=== PATIENT | female | born 1990 | race Hispanic/Latino ===

== ENCOUNTER 2017-03-15 01:09 | Emergency (ER) | payer SELFPAY ==
[2017-03-15 01:24] VITALS: BMI 21.5
[2017-03-15 01:28] VITALS: TEMP 97.8; O2SAT 99
--- NOTE | 2017-03-15 01:33 | ED PDOC ---
HPI: Psych/Substance Abuse Time Seen by Provider: 03/15/17 01:14 Chief Complaint (Nursing): Alcohol Ingestion Chief Complaint (Provider): Alcohol Ingestion History Per: EMS History/Exam Limitations: no limitations Onset/Duration Of Symptoms: Hrs Additional Complaint(s): Christi Garza presents to the ED accompanied by EMS for alcohol intoxication. EMS Report they found patient lying on a bench on the streets in [place]. Denies any trauma, medical problems or complaints. Unable to obtain history of patient due to nature of intoxication. Past Medical History Reviewed: Historical Data, Nursing Documentation, Vital Signs Vital Signs: Last Vital Signs Temp 97.8 F 03/15/17 01:21 Pulse 109 H 03/15/17 01:21 Resp 18 03/15/17 01:21 BP 149/69 03/15/17 01:21 Pulse Ox 99 03/15/17 01:21 - Medical History PMH: No Chronic Diseases - Surgical History Surgical History: No Surg Hx - Family History Family History: States: Unknown Family Hx - Allergies Allergies/Adverse Reactions: Allergies Allergy/AdvReac Type Severity Reaction Status Date / Time No Known Allergies Allergy Verified 03/15/17 01:21 Review of Systems ROS Statement: Except As Marked, All Systems Reviewed And Found Negative Constitutional: Positive for: Other (Alcohol Intoxication.) Physical Exam - Reviewed Nursing Documentation Reviewed: Yes Vital Signs Reviewed: Yes - Physical Exam Appears: Positive for: Well, Non-toxic, No Acute Distress Head Exam: Positive for: ATRAUMATIC, NORMAL INSPECTION, NORMOCEPHALIC Skin: Positive for: Normal Color Eye Exam: Positive for: Normal appearance, EOMI Cardiovascular/Chest: Positive for: Regular Rate, Rhythm. Negative for: Murmur , Tachycardia Respiratory: Positive for: Normal Breath Sounds. Negative for: Wheezing, Respiratory Distress Gastrointestinal/Abdominal: Positive for: Soft. Negative for: Tenderness Extremity: Positive for: Normal ROM Neurologic/Psych: Positive for: Alert, Oriented, Gait (Unsteady Gait.), Other ( Slurred speech.) - ECG O2 Sat by Pulse Oximetry: 99 (RA) Pulse Ox Interpretation: Normal Medical Decision Making Medical Decision Makin: Initial Plan * Alcohol Serum Stat * Placed on ED Obs. * Re-Evaluation Initial Impression: Alcohol Intoxication and Depression. Patients mother will come to pick her up. Pt will be discharged under care of the mother. Scribe Attestation: Documented by Marco Nathan acting as a scribe for Nayla Sosa MD. Provider Scribe Attestation: All medical record entries made by the Scribe were at my direction and personally dictated by me. I have reviewed the chart and agree that the record accurately reflects my personal performance of the history, physical exam, medical decision making, and the department course for this patient. I have also personally directed, reviewed, and agree with the discharge instructions and disposition. Disposition - Clinical Impression Clinical Impression: Alcohol abuse with intoxication - Patient ED Disposition Is Patient to be Admitted: No Doctor Will See Patient In The: Office Counseled Patient/Family Regarding: Studies Performed, Diagnosis, Need For Followup - Disposition Referrals: [facility] [Outside] Disposition: Routine/Home Disposition Time: 02:00 Condition: FAIR Instructions: Alcohol Intoxication (ED)
[2017-03-15 02:26] VITALS: BP 110/75; PULSE 87; RESP 16
== END 2017-03-15 02:25 | disposition home or self-care (01) ==
LOC: H.ER 01:09
DX: F10.10 Alcohol abuse, uncomplicated (principal)